=== PATIENT | female | born 1945 | race Caucasian/White ===

== ENCOUNTER 2017-09-15 10:03 | Emergency (ER) | payer MEDICARE, BC ==
--- NOTE | 2017-09-15 11:00 | UC ---
Abdominal Pain Female HPI - HPI Summary HPI Summary: Pt is a 71 y/o F c/o intermittent R-sided flank pain radiating to the R-side of lower back. Pain onset upon waking 2 days ago and is rated a 7/10 at its worse. Denies: L-sided and central back pain, Hx of kidney stones/problems. Pain subsided late last night but started again this AM. Aggravating factors: Standing upright, getting up, twisting/turning/bending. Alleviating Factors: Walking hunched. PSHx: Appendectomy, cholecystectomy. - History of Current Complaint Chief Complaint: UCGU Stated Complaint: LOWER BACK PAIN Time Seen by Provider: 09/15/17 10:51 Hx Obtained From: Patient Onset/Duration: Sudden Onset, Lasting Days - 2, Still Present, Worse Since - This AM Timing: Intermittent Episodes Lasting: Severity Currently: Severe Pain Intensity: 7 Pain Scale Used: 0-10 Numeric Location: Other - R flank Radiates: Yes Radiates to: Back - R-sided back to R-sided abdominal Aggravating Factor(s): Movement - getting up Alleviating Factor(s): Position - hunching over walking Associated Signs and Symptoms: Negative: Fever Allergies/Adverse Reactions: Allergies Allergy/AdvReac Type Severity Reaction Status Date / Time No Known Allergies Allergy Verified 09/15/17 10:21 Home Medications: Home Medications Atenolol 25 mg PO DAILY 09/15/17 [History Confirmed 09/15/17] Levothyroxine Sodium 137 mcg PO DAILY 09/15/17 [History Confirmed 09/15/17] PMH/Surg Hx/FS Hx/Imm Hx Other Endocrine History: Neg: DM Other Cardiovascular History: Neg: CAD, HTN - Surgical History Surgical History: Yes Surgery Procedure, Year, and Place: ankle pinning,hyster, - Family History Known Family History: Positive: Diabetes Negative: Cardiac Disease, Hypertension - Social History Occupation: Retired Lives: With Family Alcohol Use: None Substance Use Type: None Smoking Status (MU): Never Smoked Tobacco Review of Systems Constitutional: Negative - fever Gastrointestinal: Abdominal Pain - R-sided, radiating from front to back All Other Systems Reviewed And Are Negative: Yes Physical Exam - Summary Physical Exam Summary: General: well-appearing, Mild/moderate pain distress Skin: warm, color reflects adequate perfusion, dry Head: normal Eyes: EOMI, KEVIN ENT: normal Neck: supple, nontender Respiratory: CTA, breath sounds present Cardiovascular: RRR Abdomen: soft, minimal TTP R-flank/Abd Bowel: pos bowel sounds Musculoskeletal: normal, strength/ROM intact Neurological: sensory/motor intact, A&O x3 Psychological: affect/mood appropriate Triage Information Reviewed: Yes Vital Signs: Initial Vital Signs Temp 98.1 F 09/15/17 10:15 Pulse 49 09/15/17 10:15 Resp 16 09/15/17 10:15 BP 211/90 09/15/17 10:15 Pulse Ox 100 09/15/17 10:15 Vital Signs Reviewed: Yes Diagnostics - Radiology A/P CT Xray Interpretation: No Acute Changes - IMPRESSION: NO CT EVIDENCE OF UROLITHIASIS. NO ACUTE CT FINDINGS. NO MASS OR INFLAMMATORY CHANGES. CHOLECYSTECTOMY. HYSTERECTOMY. SMALL PERIUMBILICAL HERNIA. Radiology Interpretation Completed By: Radiologist - Has been reviewed by provider. Re-Evaluation - Re-Evaluation First Eval Change: Improved Comment: Pt was administered ibuprofen and pain was reduced to a 4/10. [place] [facility] [place] change or worsen in which she will be admitted to the ED. Abd Pain Female Course/Dx - Course Course Of Treatment: DISCUSSED THE RESULTS WITH THE PATIENT. NORMAL CT. PATIENT IS S/P APPY AND HOSSEIN. NO HX RENAL INSUFFICIENCY. NO FEVER. PAIN WENT FROM A 7/10 TO A 2/10 WITH IBUPROFEN 600MG PO. NO RASH. DISCUSSED FURTHER EVALUATION AND CARE IN THE ED TODAY VERSES CHECKING LABS HERE, WHICH WILL BE AVAILABLE TOMORROW, AND TREATMENT WITH IBUPROFEN AND ABX WITH PMD F/U AND GO TO ED IF WORSE. THE PATIENT WAS COMFORTABLE WITH OUT PATIENT TREATMENT AT THIS TIME AND KNOWS TO GO TO THE ED IF ANY WORSENING. PATIENT WILL ALSO F/U WITH PMD FOR THE HYPERTENSION. - Differential Dx/Diagnosis Provider Diagnoses: RIGHT FLANK PAIN. RIGHT SIDED ABDOMINAL PAIN. PYURIA. HYPERTENSION Discharge - Sign-Out/Discharge Documenting (check all that apply): Patient Departure - Discharge Plan Condition: Stable Disposition: HOME Prescriptions: Sulfamethox/Trimethoprim DS* [Bactrim DS 800/160 TAB*] 1 tab PO BID #14 tab Patient Education Materials: Acute Abdominal Pain (ED), Flank Pain (ED) Referrals: Mary Jackson MD [Primary Care Provider] - Additional Instructions: FOLLOW UP WITH YOUR PRIMARY CARE DOCTOR. CALL TODAY TO ARRANGE FOLLOW UP. YOU HAVE LAB RESULTS PENDING. THEY WILL BE AVAILABLE TOMORROW, 09/16/17. YOU ARE BEING TREATED FOR PAIN AND POSSIBLE UTI. YOUR CT WAS NORMAL BUT, IF YOU HAVE ANY CONCERNS, GO DIRECTLY TO THE EMERGENCY DEPARTMENT FOR FURTHER EVALUATION AND CARE. GO TO THE EMERGENCY DEPARTMENT FOR ANY WORSENING OF YOUR CONDITION; CONTINUED OR WORSE PAIN, FEVER, VOMITING, YOU FEEL ILL, RASH, BLOOD IN YOUR URINE OR STOOL OR QUESTIONS OR CONCERNS. - Billing Disposition and Condition Condition: STABLE Disposition: Home
[2017-09-15] MEDS ORDERED: Ibuprofen TAB* 600 MG PO ONE (11:02)
--- NOTE | 2017-09-15 12:48 | RAD ---
INDICATION: Right flank pain COMPARISON: None TECHNIQUE: Noncontrast axial source images were acquired from the level hemidiaphragms to the symphysis pubis as part of CT imaging for renal stone. Lung bases: The lung bases are clear. Liver: The liver is enlarged with findings of hepatic steatosis. Noncontrast imaging shows no evidence of a hepatic mass or ductal dilatation. Gallbladder: Cholecystectomy. Spleen: The spleen is normal in size. The noncontrast CT appearance is normal. Pancreas: Noncontrast imaging shows no pancreatic mass or ductal dilitation. Adrenal glands: No masses are identified. Kidneys/Bladder: There is no evidence of nephrolithiasis or CT evidence of hydronephrosis. Noncontrast imaging shows no evidence of a renal mass. The bladder is unremarkable.. Adenopathy: There is no evidence of intraperitoneal or retroperitoneal adenopathy. Evaluation is limited without oral contrast. Fluid collections: There are no free or localized fluid collections. Vessels: The aorta and iliac vessels are normal in caliber. There are no significant atherosclerotic changes. The IVC appears normal Pelvic organs: There is hysterectomy. There is no adnexal mass GI tract: Evaluation of the bowel is limited without oral contrast. The upper GI tract is unremarkable. There are scattered diverticula of the colon. There are no CT findings of acute diverticulitis. There are no obstructive findings. The appendix is not visualized. There is no periappendiceal inflammatory change. Soft tissues: There is a small fat-containing umbilical hernia. Osseous structures: There are no acute osseous findings. IMPRESSION: NO CT EVIDENCE OF UROLITHIASIS. NO ACUTE CT FINDINGS. NO MASS OR INFLAMMATORY CHANGES. CHOLECYSTECTOMY. HYSTERECTOMY. SMALL PERIUMBILICAL HERNIA.
[2017-09-15 18:40] LABS: ABS Basophils 0 10^3/ul (0-0.2); ABS Eosinophils 0.1 10^3/ul (0-0.6); ABS Lymphocytes 1.4 10^3/ul (1.0-4.8); ABS Monocytes 0.4 10^3/ul (0-0.8); ABS Neutrophils 4.7 10^3/ul (1.5-7.7); ABS Nucleated RBC 0 10^3/ul; Eosinophil % 2.1 % (0-6); Hematocrit 51 % (35-47); Hemoglobin 17.2 g/dl (12.0-16.0); Lymphocyte % 21.4 % (25-47); Mean Corpuscular HGB Conc 34 g/dl (31-36); Mean Corpuscular Hemoglobin 30 pg (27-31); Mean Corpuscular Volume 87 fL (80-97); Mean Platelet Volume 9.1 um3 (7.4-10.4); Nucleated Red Blood Cells % 0.5; Platelet Count 178 10^3/ul (150-450); Red Cell Distribution Width 14 % (10.5-15); White Blood Count 6.6 10^3/ul (3.5-10.8)
[2017-09-15 18:53] LABS: EGFR Non-African American 66.6 (>60)
--- NOTE | 2017-09-16 11:30 | UC ---
- Progress Note Progress Note: CBC CMP crp reviewed - no change to mngmt Re-Evaluation - Re-Evaluation First Eval Change: Improved Comment: Pt was administered ibuprofen and pain was reduced to a 4/10. Will be treated at [facility] [place] unless symptoms change or worsen in which she will be admitted to the ED. Discharge - Sign-Out/Discharge Documenting (check all that apply): Post-Discharge Follow Up - Discharge Plan Condition: Stable Disposition: HOME Prescriptions: Sulfamethox/Trimethoprim DS* [Bactrim DS 800/160 TAB*] 1 tab PO BID #14 tab Patient Education Materials: Acute Abdominal Pain (ED), Flank Pain (ED) Referrals: Mary Jackson MD [Primary Care Provider] - Additional Instructions: FOLLOW UP WITH YOUR PRIMARY CARE DOCTOR. CALL TODAY TO ARRANGE FOLLOW UP. YOU HAVE LAB RESULTS PENDING. THEY WILL BE AVAILABLE TOMORROW, 09/16/17. YOU ARE BEING TREATED FOR PAIN AND POSSIBLE UTI. YOUR CT WAS NORMAL BUT, IF YOU HAVE ANY CONCERNS, GO DIRECTLY TO THE EMERGENCY DEPARTMENT FOR FURTHER EVALUATION AND CARE. GO TO THE EMERGENCY DEPARTMENT FOR ANY WORSENING OF YOUR CONDITION; CONTINUED OR WORSE PAIN, FEVER, VOMITING, YOU FEEL ILL, RASH, BLOOD IN YOUR URINE OR STOOL OR QUESTIONS OR CONCERNS. - Billing Disposition and Condition Condition: STABLE Disposition: Home
== END 2017-09-15 14:32 | disposition home or self-care (01) ==
LOC: UCEAST 10:03
DX: N39.0 Urinary tract infection, site not specified (principal); R10.9 Unspecified abdominal pain; I10 Essential (primary) hypertension; M54.5 Low back pain; Z79.899 Other long term (current) drug therapy
CPT/HCPCS: 36415; 74176; 80053; 81003; 83690; 85025; 86140; 87086; 99202; A9270-GY; G0463